=== PATIENT | female | born 1995 ===

== ENCOUNTER 2017-04-30 22:51 | Emergency (ER) | payer SELFPAY ==
[~2017-04-30] VITALS: Ht 182.9 cm; Wt 70.5 kg
[2017-04-30 22:59] VITALS: Ht 182.9 cm; Wt 70.5 kg
[2017-04-30] MEDS ORDERED: HYDR-906 PO (23:27)
[2017-04-30] MEDS ORDERED: CEPH-443 PO (23:27)
--- NOTE | 2017-04-30 23:35 | ERD ---
ER Documentation Chief Complaint Date/Time DATE: 04/30/17 TIME: 23:31 Chief Complaint wound check laceration right palm x 3 days, states sutures came out. HPI 2-year-old female presents for a wound check from a laceration that was sewn here 3 days ago. States that she was in a bathtub when the sutures, all 3 of them, spontaneously came out. She has some pain surrounding the lesion localized. No limitation of range of motion of the hand. She is wants to minimize scarring as much as possible. No fevers. ROS All systems reviewed and are negative except as per history of present illness. Medications Home Meds Active Scripts Hydrocodone/Acetaminophen (Chokio 5-325 Tablet) 1 Each Tablet, 1 EACH PO Q6, #14 TAB Prov:KELL WALTERS DO 04/30/17 Cephalexin* (Keflex*) 500 Mg Capsule, 500 MG PO TID for 5 Days, CAP Prov:KELL WALTERS DO 04/30/17 Allergies Allergies: Coded Allergies: Sulfa (Sulfonamide Antibiotics) (Verified Allergy, Unknown, 04/30/17) Physical Exam Vitals Vital Signs Date Time Temp Pulse Resp B/P Pulse Ox O2 Delivery O2 Flow Rate FiO2 04/30/17 22:59 97.5 100 20 114/60 98 Physical Exam Const: [] No distress Head: Atraumatic Ext: No cyanosis, or edema, right palm laceration, V-shaped approximately 1.5 cm in each wing. Mild surrounding erythema. Laceration is open approximately 5.5 cm of the maximum. The tissue is dry and there is no bleeding. Skin sensation and motor function intact. Capillary refill less than 1 second Neur: Sensation intact to entire palm and hand. Procedures/MDM Laceration with sutures spontaneously removed and completely missing. So laceration has mild surrounding erythema. I am going to give Keflex for prophylaxis and a few Chokio for knee pain. Precautions given for any fevers, extra pain or spreading of erythema. Primary care follow-up in 2-3 days advised. Departure Diagnosis: Primary Impression: Encounter for re-check of laceration wound Condition: Stable Patient Instructions: Wound Care Referrals: [facility] YOU HAVE RECEIVED A MEDICAL SCREENING EXAM AND THE RESULTS INDICATE THAT YOU DO NOT HAVE A CONDITION THAT REQUIRES URGENT TREATMENT IN THE EMERGENCY DEPARTMENT. FURTHER EVALUATION AND TREATMENT OF YOUR CONDITION CAN WAIT UNTIL YOU ARE SEEN IN YOUR DOCTORS OFFICE WITHIN THE NEXT 1-2 DAYS. IT IS YOUR RESPONSIBILITY TO MAKE AN APPOINTMENT FOR FOLOW-UP CARE. IF YOU HAVE A PRIMARY DOCTOR --you should call your primary doctor and schedule an appointment IF YOU DO NOT HAVE A PRIMARY DOCTOR YOU CAN CALL OUR PHYSICIAN REFERRAL HOTLINE AT IF YOU CAN NOT AFFORD TO SEE A PHYSICIAN YOU CAN CHOSE FROM THE FOLLOWING [facility] [address] [facility] [address] [facility] [address] [facility] [address] [facility]. [facility] [address] [facility] [facility]. [address] Additional Instructions: Call your primary care doctor TOMORROW for an appointment during the next 2-3 days.See the doctor sooner or return here if your condition worsens before your appointment time. KELL WALTERS DO Apr 30, 2017 23:35
== END 2017-04-30 23:48 | disposition home or self-care (01) ==
LOC: FTE 22:51
DX: Z48.01 Encounter for change or removal of surgical wound dressing (principal)
CPT/HCPCS: 99284